=== PATIENT | male | born 1975 | race Caucasian/White ===

== ENCOUNTER 2022-05-15 08:12 | Emergency (ER) | payer BC, SELFPAY ==
--- NOTE | 2022-05-15 08:18 | ED.URI ---
HPI - URI/Sore Throat General Chief Complaint: Upper Respiratory Infection Stated Complaint: Chest Congestion/Dizziness Time Seen by Provider: 05/15/22 08:19 Source: patient and RN notes reviewed History of Present Illness HPI Narrative: Patient is a 47-year-old male who presents to urgent care with complaints of chest congestion and dizziness. Patient states this is consistent with his normal vertigo-like symptoms that he has had in the past. Patient has had also had a cough and runny nose since Sunday. Patient has been driving and living his normal daily life with this ?dizziness?. Patient states that he left work today due to his symptoms. Patient drove here from [place]. Patient has not taken anything [id number] for his symptoms at home. Denies any fever, nausea or vomiting. No other acute complaints. No acute distress noted. Patient aware of the plan of care. Some parts of this dictation were generated by voice recognition software and may contain typographical and/or grammatical inaccuracies. Related Data Home Medications Medication Instructions Recorded Confirmed amlodipine 5 mg tablet 5 mg PO DAILY 05/15/22 05/15/22 atorvastatin 20 mg tablet 20 mg PO DAILY 05/15/22 05/15/22 clonazepam 0.5 mg tablet 0.5 mg PO BID 05/15/22 05/15/22 fluoxetine 40 mg capsule 40 mg PO BID 05/15/22 05/15/22 Allergies Allergy/AdvReac Type Severity Reaction Status Date / Time Penicillins Allergy Severe Anaphylactic Verified 05/15/22 08:29 Shock Review of Systems Review of Systems: CONSTITUTIONAL: Denies fever, chills, or sweats. EYES: Denies visual changes, redness, or discharge. ENT: Reports of fluid in the ears, rhinorrhea CARDIOVASCULAR: Denies chest pain, palpitations, or edema. RESPIRATORY: Reports of cough without dyspnea GASTROINTESTINAL: Denies abdominal pain, nausea, vomiting, or diarrhea. GENITOURINARY: Denies dysuria or hematuria. SKIN: Denies rash or itching. MUSCULOSKELETAL: Denies back pain, joint pain, or myalgia. NEUROLOGIC: Denies headache, numbness, or weakness. Reports of dizziness All other systems reviewed are negative, except as documented in HPI. [facility] Comments At the time of my signature, I reviewed and agree with the nursing past medical, surgical, social, and family history. There is no relevant family history pertinent to the patient complaint. Exam Narrative: GENERAL: This is a well-nourished, well-developed patient, in no apparent distress. HEAD: normocephalic, atraumatic. EYES: PERRL. Sclera clear/white. Vision is grossly intact. EARS: External ears normal, auditory canals clear and without drainage, mild eustachian tube dysfunction to the right. Left TMs normal without perforation. Hearing grossly intact. NOSE: External nose normal with no obvious nasal discharge, nares without redness, clear rhinorrhea. THROAT: Mucous membranes moist, moderate postnasal drainage NECK: Neck supple, non-tender without lymphadenopathy CARDIOVASCULAR: Regular rate and rhythm without murmurs, gallops, or rubs. RESPIRATORY: Clear to auscultation. Breath sounds equal bilaterally. No wheezes, rales, or rhonchi. SKIN: warm, intact with no suspicious lesions or rash, good texture and turgor. NEURO: awake, alert, and oriented to person, place and time. There were no obvious focal neurologic abnormalities. EXTREMITIES: No clubbing, cyanosis, or edema. Course Course Level of Care: Express Care Visit Vital Signs Vital signs: Vital Signs Temperature 97.7 F 05/15/22 08:20 Pulse Rate 82 05/15/22 08:20 Respiratory Rate 20 05/15/22 08:20 Blood Pressure 132/89 05/15/22 08:20 Pulse Oximetry 96 05/15/22 08:20 Temperature 97.7 F 05/15/22 08:20 Pulse Rate 82 05/15/22 08:20 Respiratory Rate 20 05/15/22 08:20 Blood Pressure 132/89 05/15/22 08:20 Pulse Oximetry 96 05/15/22 08:20 Reviewed MDM - URI/Sore Throat MDM Narrative Medical decision making narrative: Advised patient com
[2022-05-15 08:20] VITALS: BP 132/89; PULSE 82; RESP 20; TEMP 36.5; O2SAT 96
== END 2022-05-15 08:45 | disposition home or self-care (01) ==
PROVIDERS: Emergency Provider Nurse Practitioner Family
DX: H69.81 Other specified disorders of Eustachian tube, right ear (principal); R42 Dizziness and giddiness
CPT/HCPCS: 99213; G0463